=== PATIENT | male | born 1955 | race Caucasian/White ===

== ENCOUNTER 2017-07-23 09:28 | Day surgery (SDC) | payer OTHER ==
[~2017-07-23 09:28] MED LIST: KEFLEX 500MG.500 MG PO; LORTAB 5/500 501 TAB PO
--- NOTE | 2017-07-23 10:57 | Operative Note ---
Endoscopy Report Date: 07/23/17 Preoperative diagnosis: Screening Procedure Type of procedure: Total colonoscopy to terminal ileum with polypectomy by biopsy Indications: Patient is a 61-year-old white male. He is a self-referral to the office for colonoscopy. He is under the care of Dr. Harper. He states that "I have had issues for years". He describes some occasional bright red rectal bleeding which is appreciable. He also has pain. This is usually worse when he is working outside and doing a lot of lifting. He did have a colonoscopy about 10 years ago which was reportedly unremarkable. Denies family history of colon cancer. Consent was obtained and patient was taken to same-day surgery endoscopy procedure room. He was positioned in a lateral decubitus position. Adequate intravenous sedation was achieved. Digital examination was performed which revealed palpable internal hemorrhoids. Variable stiffness Olympus colonoscope was inserted via the anus and advanced to the cecum without significant difficulty. Ileocecal valve and appendiceal orifice were clearly identified. Colonoscope was withdrawn to the colon with careful surveillance. Within the rectosigmoid region there was a hyperplastic appearing polyp which was removed with cold biopsy forceps. Retroflexion within the rectum revealed internal hemorrhoids which were nonbleeding. Colonoscope was withdrawn. Findings 1. Internal Hemorrhoids 2. Polyp Follow-Up Follow-Up: Self-limited episodes of bleeding he has is likely due to internal hemorrhoids. Pending the pathology recommend follow-up colonoscopy 5-10 years. at [id number]
[2017-07-23 13:32] VITALS: BP 119/68
[2017-07-25] MEDS ORDERED: METFORMIN 500M500 MG PO (10:57)
[2017-07-25] MEDS ORDERED: IBUPROFEN 600M600 MG PO (10:58)
== END 2017-07-23 11:32 | disposition home or self-care (01) ==
LOC: SDC 09:28
PROVIDERS: Surgery
PROC: 0DBN8ZX Excision of Sigmoid Colon, Via Natural or Artificial Opening Endoscopic, Diagnostic (ICD-10-PCS; principal; 2017-07-23 10:00)
DX: K62.5 Hemorrhage of anus and rectum (principal); K64.8 Other hemorrhoids; K63.5 Polyp of colon